=== PATIENT | male | born 1950 | race Caucasian/White ===

== ENCOUNTER 2017-10-24 18:13 | Inpatient (IN) | payer MEDICARE, OTHER ==
[~2017-10-24] VITALS: Ht 167.6 cm; Wt 83.0 kg
[2017-10-24 18:35] LABS: BASOPHILS # (AUTO) 0.1 X10'3 (0-0.2); BASOPHILS % (AUTO) 0.8 % (0-1); EOSINOPHILS # (AUTO) 0.1 X10'3 (0-0.9); EOSINOPHILS % (AUTO) 1.5 % (0-6); HEMATOCRIT 46.4 % (42.0-52.0); HEMOGLOBIN 15.6 g/dl (14.0-17.9); LYMPHOCYTES # (AUTO) 1.7 X10'3 (1.1-4.8); LYMPHOCYTES % (AUTO) 22.8 % (21-51); MEAN CORPUSCULAR HEMOGLOBIN 30.8 PG (27.0-31.0); MEAN CORPUSCULAR HGB CONC 33.5 % (33.0-36.5); MEAN CORPUSCULAR VOLUME 91.9 FL (78-98); MEAN PLATELET VOLUME 6.9 FL (7.4-10.4); MONOCYTES # (AUTO) 0.7 X10'3 (0-0.9); MONOCYTES % (AUTO) 9.2 % (2-12); NEUTROPHILS % (AUTO) 65.7 % (42-75); PLATELET COUNT 158 X10'3 (140-440); RED BLOOD COUNT 5.05 X10'6 (4.70-6.10); RED CELL DISTRIBUTION WIDTH 13.5 % (11.5-14.5); WHITE BLOOD COUNT 7.6 X10'3 (4.5-11.0)
[2017-10-24 18:55] LABS: ALANINE AMINOTRANSFERASE 38 U/L (12-78); ALBUMIN 2.6 G/DL (3.4-5.0); ALBUMIN/GLOBULIN RATIO 0.7 (1.1-1.5); ALKALINE PHOSPHATASE 75 IU/L (46-116); ANION GAP 7 (8-16); ASPARTATE AMINO TRANSFERASE 46 U/L (10-37); BILIRUBIN,TOTAL 0.3 MG/DL (0.1-1.0); BLOOD UREA NITROGEN 36 MG/DL (7-18); BUN/CREATININE RATIO 12.9 (5.4-32.0); CALCIUM 8.5 MG/DL (8.5-10.1); CHLORIDE 104 MMOL/L (99-107); CREATININE 2.78 MG/DL (0.60-1.10); GLUCOSE 183 MG/DL (70-104); POTASSIUM 4.2 MMOL/L (3.5-5.1); SODIUM 137 MMOL/L (135-145); TOTAL CARBON DIOXIDE 25.7 MMOL/L (24-32); TOTAL PROTEIN 6.6 G/DL (6.4-8.2); eGFR 23 ML/MIN
[2017-10-24 18:57] LABS: MAGNESIUM 1.8 MG/DL (1.5-2.4)
[2017-10-24] MEDS ORDERED: heparin 10,000 units/1 ML INJ IV ONE ×2 (19:15→19:20)
[2017-10-24] MEDS ORDERED: heparin 10,000 units/1 ML INJ IV PRN (19:15)
[2017-10-24] MEDS ORDERED: SITA100T11 PO (19:17)
[2017-10-24] MEDS ORDERED: OMEG1CAP13 PO (19:17)
[2017-10-24] MEDS ORDERED: LOSA50TA37 PO (19:17)
[2017-10-24] MEDS ORDERED: ASPI81TA52 PO (19:17)
[2017-10-24] MEDS ORDERED: LANTUS SQ (19:17)
[2017-10-24] MEDS ORDERED: GLYB5TAB7 PO (19:17)
[2017-10-24] MEDS ORDERED: LOVA40TA2 PO (19:17)
[2017-10-24] MEDS ORDERED: OMEP20TA23 PO (19:17)
[2017-10-24] MEDS ORDERED: SPIR25TA5 PO (19:17)
[2017-10-24] MEDS ORDERED: METO50TA17 PO (19:17)
[2017-10-24] MEDS ORDERED: dextrose ORAL solution 15 GM/59 ML bottle PO PRN ×2 (20:50)
[2017-10-24] MEDS ORDERED: mag hydrox/Alum hydrox/simeth 30ml oral suspension PO PRN (20:50)
[2017-10-24] MEDS ORDERED: glucagon, human recombinant 1mg kit SUBCUT PRN (20:50)
[2017-10-24] MEDS ORDERED: MESSAGE TO PHARMACY PO ONE (20:50)
[2017-10-24] MEDS ORDERED: morphine 4 MG/ML inj SYRINge IV PRN ×2 (20:50)
[2017-10-24] MEDS ORDERED: magnesium hydroxide 30ml (MOM) UD suspension PO PRN (20:50)
[2017-10-24] MEDS ORDERED: dextrose 50%-water 50ml dispensing syringe IV PRN ×2 (20:50)
[2017-10-24] MEDS ORDERED: acetaminophen 325mg tablet PO PRN (20:50)
[2017-10-24] MEDS ORDERED: ondansetron/PF 4mg/2ml inj IV PRN (20:50)
[2017-10-24] MEDS: insulin glargine (Lantus) pen - multi-dose SQ SCH (21:00)
[2017-10-24 21:25] LABS: HEMOGLOBIN A1C 8.8 % (4.5-6.2)
[2017-10-24 21:32] VITALS: BP 144/75
[2017-10-24 23:00] VITALS: BP 129/72
[2017-10-25 03:00] VITALS: BP 129/73
[2017-10-25 05:30] VITALS: BP 136/74
[2017-10-25] MEDS ORDERED: spironolactone 25 MG tablet PO SCH (08:00)
[2017-10-25] MEDS ORDERED: aspirin 81mg tablet.DR PO SCH (08:00)
[2017-10-25] MEDS ORDERED: atorvastatin 20mg tablet PO SCH (08:00)
[2017-10-25] MEDS: losartan 50mg tablet PO SCH (08:07)
[2017-10-25] MEDS: metoprolol tartrate 50mg tablet PO SCH (08:07)
[2017-10-25 08:21] LABS: ALBUMIN 2.4 G/DL (3.4-5.0); ANION GAP 11 (8-16); BLOOD UREA NITROGEN 36 MG/DL (7-18); BUN/CREATININE RATIO 13.6 (5.4-32.0); CALCIUM 8.6 MG/DL (8.5-10.1); CHLORIDE 105 MMOL/L (99-107); CREATININE 2.64 MG/DL (0.60-1.10); GLUCOSE 161 MG/DL (70-104); POTASSIUM 3.9 MMOL/L (3.5-5.1); SODIUM 138 MMOL/L (135-145); TOTAL CARBON DIOXIDE 22.2 MMOL/L (24-32); eGFR 24 ML/MIN
[2017-10-25 08:23] LABS: BASOPHILS % (AUTO) 0.5 % (0-1); EOSINOPHILS # (AUTO) 0.1 X10'3 (0-0.9); EOSINOPHILS % (AUTO) 2.1 % (0-6); HEMATOCRIT 44.7 % (42.0-52.0); HEMOGLOBIN 15.1 g/dl (14.0-17.9); LYMPHOCYTES # (AUTO) 1.3 X10'3 (1.1-4.8); LYMPHOCYTES % (AUTO) 19.1 % (21-51); MEAN CORPUSCULAR HEMOGLOBIN 30.8 PG (27.0-31.0); MEAN CORPUSCULAR HGB CONC 33.8 % (33.0-36.5); MEAN CORPUSCULAR VOLUME 91.3 FL (78-98); MEAN PLATELET VOLUME 7.7 FL (7.4-10.4); MONOCYTES # (AUTO) 0.6 X10'3 (0-0.9); MONOCYTES % (AUTO) 8.2 % (2-12); NEUTROPHILS # (AUTO) 4.8 X10'3 (1.8-7.7); NEUTROPHILS % (AUTO) 70.1 % (42-75); PLATELET COUNT 140 X10'3 (140-440); RED CELL DISTRIBUTION WIDTH 13.6 % (11.5-14.5); WHITE BLOOD COUNT 6.8 X10'3 (4.5-11.0)
[2017-10-25 10:53] LABS: CHOLESTEROL 232 MG/DL (0-200); HDL CHOLESTEROL 46 MG/DL (35-60); LDL CHOLESTEROL 142 MG/DL (50-100); TRIGLYCERIDES 265 MG/DL (20-135)
[2017-10-25 11:00] VITALS: BP 130/76
[2017-10-25] MEDS: sodium bicarbonate (8.4%) inj. 100 MEQ in dextrose 5%-water 1,000 ML IV SCH ×2 (14:03→23:00)
[2017-10-25 15:00] VITALS: BP 133/84
[2017-10-25] MEDS ORDERED: nitroGLYCERIN 0.4mg SUBLingual tab SL PRN (16:45)
[2017-10-25] MEDS: insulin Lispro (HumaLOG) vial - multi-dose SQ SCH (18:42)
[2017-10-25 19:00] VITALS: BP 145/70
[2017-10-25] MEDS: insulin glargine (Lantus) pen - multi-dose SQ SCH (22:08)
[2017-10-25] MEDS: acetaminophen 325mg tablet PO PRN (22:09)
[2017-10-25 23:00] VITALS: BP 110/63
[2017-10-26] MEDS: sodium bicarbonate (8.4%) inj. 100 MEQ in dextrose 5%-water 1,000 ML IV SCH ×2 (01:46→14:13)
[2017-10-26 02:24] LABS: ALBUMIN 2.2 G/DL (3.4-5.0); ANION GAP 8 (8-16); BLOOD UREA NITROGEN 38 MG/DL (7-18); BUN/CREATININE RATIO 15.4 (5.4-32.0); CALCIUM 8.1 MG/DL (8.5-10.1); CHLORIDE 102 MMOL/L (99-107); CREATININE 2.47 MG/DL (0.60-1.10); GLUCOSE 110 MG/DL (70-104); POTASSIUM 3.3 MMOL/L (3.5-5.1); SODIUM 138 MMOL/L (135-145); TOTAL CARBON DIOXIDE 28.1 MMOL/L (24-32); eGFR 26 ML/MIN
[2017-10-26 02:26] LABS: BASOPHILS % (AUTO) 0.4 % (0-1); EOSINOPHILS # (AUTO) 0.1 X10'3 (0-0.9); EOSINOPHILS % (AUTO) 1.7 % (0-6); HEMATOCRIT 43.2 % (42.0-52.0); HEMOGLOBIN 14.6 g/dl (14.0-17.9); LYMPHOCYTES # (AUTO) 1.6 X10'3 (1.1-4.8); LYMPHOCYTES % (AUTO) 20.8 % (21-51); MEAN CORPUSCULAR HEMOGLOBIN 31.1 PG (27.0-31.0); MEAN CORPUSCULAR HGB CONC 33.9 % (33.0-36.5); MEAN CORPUSCULAR VOLUME 91.7 FL (78-98); MEAN PLATELET VOLUME 7.6 FL (7.4-10.4); MONOCYTES # (AUTO) 0.6 X10'3 (0-0.9); MONOCYTES % (AUTO) 8.3 % (2-12); NEUTROPHILS # (AUTO) 5.3 X10'3 (1.8-7.7); NEUTROPHILS % (AUTO) 68.8 % (42-75); PLATELET COUNT 147 X10'3 (140-440); RED BLOOD COUNT 4.72 X10'6 (4.70-6.10); RED CELL DISTRIBUTION WIDTH 13.4 % (11.5-14.5); WHITE BLOOD COUNT 7.7 X10'3 (4.5-11.0)
[2017-10-26 02:27] LABS: TROPONIN I 5.71 NG/ML (0.0-0.05)
[2017-10-26 03:00] VITALS: BP 123/69
[2017-10-26 06:00] VITALS: BP 113/62
[2017-10-26] MEDS: metoprolol tartrate 50mg tablet PO SCH (07:41)
[2017-10-26] MEDS: aspirin 81mg tablet.DR PO SCH (07:42)
[2017-10-26] MEDS: atorvastatin 20mg tablet PO SCH (07:42)
[2017-10-26] MEDS: losartan 50mg tablet PO SCH (07:42)
[2017-10-26] MEDS: insulin Lispro (HumaLOG) vial - multi-dose SQ SCH ×3 (08:55→19:37)
[2017-10-26 11:00] VITALS: BP 104/58
[2017-10-26 15:00] VITALS: BP 114/69
[2017-10-26 18:00] VITALS: BP 128/86
[2017-10-26] MEDS ORDERED: potassium Cl 40MEQ/NS 500ml 500 ML IV PRN ×2 (21:25)
[2017-10-26] MEDS ORDERED: potassium Cl 20 mEq SR tablet PO PRN ×2 (21:25)
[2017-10-26] MEDS: insulin glargine (Lantus) pen - multi-dose SQ SCH (21:36)
[2017-10-26 22:00] VITALS: BP 142/80
[2017-10-26] MEDS: K and/or MAG REPLACEMENT MC SCH (22:00)
[2017-10-27] MEDS: sodium bicarbonate (8.4%) inj. 100 MEQ in dextrose 5%-water 1,000 ML IV SCH (01:48)
[2017-10-27 02:00] VITALS: BP 148/80
[2017-10-27] MEDS ORDERED: lidocaine 1%/epinephrine 1:100,000 injection 50ml vial ONE (05:46)
[2017-10-27] MEDS ORDERED: iohexol 350MG/ML 100ml bottle IV ONE (05:46)
[2017-10-27] MEDS ORDERED: fentaNYL/PF 50MCG/1 ML 2ML syringe ONE (05:46)
[2017-10-27] MEDS ORDERED: midazolam 2 mg/2 ml injection ONE (05:46)
[2017-10-27 06:08] LABS: BASOPHILS % (AUTO) 0.4 % (0-1); EOSINOPHILS # (AUTO) 0.2 X10'3 (0-0.9); HEMATOCRIT 44.6 % (42.0-52.0); HEMOGLOBIN 15.1 g/dl (14.0-17.9); LYMPHOCYTES # (AUTO) 1.5 X10'3 (1.1-4.8); LYMPHOCYTES % (AUTO) 22.8 % (21-51); MEAN CORPUSCULAR HEMOGLOBIN 31.1 PG (27.0-31.0); MEAN CORPUSCULAR VOLUME 91.4 FL (78-98); MEAN PLATELET VOLUME 7.6 FL (7.4-10.4); MONOCYTES # (AUTO) 0.7 X10'3 (0-0.9); MONOCYTES % (AUTO) 9.8 % (2-12); NEUTROPHILS # (AUTO) 4.3 X10'3 (1.8-7.7); PLATELET COUNT 156 X10'3 (140-440); RED BLOOD COUNT 4.88 X10'6 (4.70-6.10); RED CELL DISTRIBUTION WIDTH 13.4 % (11.5-14.5); WHITE BLOOD COUNT 6.7 X10'3 (4.5-11.0)
[2017-10-27 06:29] LABS: ALBUMIN 2.3 G/DL (3.4-5.0); ANION GAP 2 (8-16); BLOOD UREA NITROGEN 32 MG/DL (7-18); CALCIUM 8.5 MG/DL (8.5-10.1); CHLORIDE 101 MMOL/L (99-107); CREATININE 2.13 MG/DL (0.60-1.10); GLUCOSE 190 MG/DL (70-104); POTASSIUM 3.6 MMOL/L (3.5-5.1); SODIUM 135 MMOL/L (135-145); TOTAL CARBON DIOXIDE 31.9 MMOL/L (24-32); eGFR 31 ML/MIN
[2017-10-27] MEDS: losartan 50mg tablet PO SCH (07:37)
[2017-10-27] MEDS: acetaminophen 325mg tablet PO PRN (07:39)
[2017-10-27] MEDS: aspirin 81mg tablet.DR PO SCH (07:39)
[2017-10-27] MEDS: atorvastatin 20mg tablet PO SCH (07:39)
[2017-10-27] MEDS ORDERED: metoprolol tartrate 25mg tablet PO SCH (08:00)
[2017-10-27] MEDS: K and/or MAG REPLACEMENT MC SCH (08:00)
[2017-10-27] MEDS ORDERED: ondansetron/PF 4mg/2ml inj IV PRN (08:05)
[2017-10-27] MEDS ORDERED: proCHLORperazine 10 MG/2 ml inj IV PRN (08:05)
[2017-10-27] MEDS ORDERED: OXAZEpam 15mg capsule PO PRN (08:05)
[2017-10-27] MEDS: insulin Lispro (HumaLOG) vial - multi-dose SQ SCH (08:54)
[2017-10-27 11:00] VITALS: BP 119/76
[2017-10-27] MEDS ORDERED: ATOR80TA PO (12:24)
== END 2017-10-27 13:20 | disposition home or self-care (01) | DRG 281 ==
LOC: ER 18:14 → PCU 3S 20:48
PROVIDERS: ADMIT Internal Medicine; ATTEND Family Medicine
PROC: B2111ZZ Fluoroscopy of Multiple Coronary Arteries using Low Osmolar Contrast (ICD-10-PCS; principal; 2017-10-27)
DX: I21.4 Non-ST elevation (NSTEMI) myocardial infarction (principal); E44.1 Mild protein-calorie malnutrition; N18.3 Chronic kidney disease, stage 3 (moderate); E11.22 Type 2 diabetes mellitus with diabetic chronic kidney disease; E78.5 Hyperlipidemia, unspecified; M19.90 Unspecified osteoarthritis, unspecified site; I12.9 Hypertensive chronic kidney disease with stage 1 through stage 4 chronic kidney disease, or unspecified chronic kidney disease; I25.10 Atherosclerotic heart disease of native coronary artery without angina pectoris; Z66 Do not resuscitate; Z72.89 Other problems related to lifestyle; Z95.5 Presence of coronary angioplasty implant and graft; Z79.899 Other long term (current) drug therapy; Z79.4 Long term (current) use of insulin; Z79.82 Long term (current) use of aspirin; Z86.718 Personal history of other venous thrombosis and embolism; Z82.0 Family history of epilepsy and other diseases of the nervous system; Z82.49 Family history of ischemic heart disease and other diseases of the circulatory system; Z83.3 Family history of diabetes mellitus; Z68.29 Body mass index [BMI] 29.0-29.9, adult
CPT/HCPCS: 36415; 71045; 80048; 80053; 80061; 82948; 83036; 83735; 83880; 84484; 85025; 85730; 87070; 93005; 93308; 93458; 96374; 99152; 99285; A4620; A6257; C1769; J1644; J1815; J2250; J3010; J3490; Q9967

== ENCOUNTER 2019-01-17 06:06 | Day surgery (SDC) | payer MEDICARE, OTHER ==
[2019-01-16 14:14] LABS: BASOPHILS # (AUTO) 0.1 X10'3 (0-0.2); BASOPHILS % (AUTO) 0.8 % (0-1); EOSINOPHILS # (AUTO) 0.2 X10'3 (0-0.9); EOSINOPHILS % (AUTO) 3.5 % (0-6); HEMATOCRIT 45.3 % (42.0-52.0); HEMOGLOBIN 15.3 g/dl (14.0-17.9); LYMPHOCYTES # (AUTO) 1.7 X10'3 (1.1-4.8); LYMPHOCYTES % (AUTO) 26.4 % (21-51); MEAN CORPUSCULAR HEMOGLOBIN 31.3 PG (27.0-31.0); MEAN CORPUSCULAR HGB CONC 33.7 g/dL (33.0-36.5); MEAN PLATELET VOLUME 7.3 FL (7.4-10.4); MONOCYTES # (AUTO) 0.5 X10'3 (0-0.9); NEUTROPHILS # (AUTO) 3.9 X10'3 (1.8-7.7); NEUTROPHILS % (AUTO) 61.3 % (42-75); PLATELET COUNT 177 X10'3 (140-440); RED BLOOD COUNT 4.87 X10'6 (4.70-6.10); RED CELL DISTRIBUTION WIDTH 12.8 % (11.5-14.5); WHITE BLOOD COUNT 6.3 X10'3 (4.5-11.0)
[2019-01-16 14:27] LABS: ALBUMIN 2.7 G/DL (3.4-5.0); ANION GAP 4 (8-16); BLOOD UREA NITROGEN 32 MG/DL (7-18); BUN/CREATININE RATIO 12.2 (5.4-32.0); CALCIUM 8.3 MG/DL (8.5-10.1); CHLORIDE 104 MMOL/L (99-107); CREATININE 2.63 MG/DL (0.60-1.10); GLUCOSE 237 MG/DL (70-104); POTASSIUM 4.7 MMOL/L (3.5-5.1); SODIUM 137 MMOL/L (135-145); TOTAL CARBON DIOXIDE 28.9 MMOL/L (24-32); eGFR 24 ML/MIN
[2019-01-16 14:31] LABS: PARTIAL THROMBOPLASTIN TIME 27 SECONDS (22-32)
[~2019-01-17] VITALS: Ht 167.6 cm; Wt 80.9 kg
[2019-01-17] VITALS (16 sets, daily range): BP systolic 129–156; BP diastolic 73–82
[~2019-01-17 06:06] MED LIST: ASPI81TA52 PO; GLYB5TAB7 PO; LANTUS SQ; LOSA50TA64 PO; METO50TA17 PO; OMEG1CAP13 PO; OMEP20TA23 PO; SITA100T11 PO; SPIR25TA5 PO
[2019-01-17] MEDS ORDERED: diphenhydrAMINE 25mg capsule PO PRN (06:25)
[2019-01-17] MEDS ORDERED: LORazepam 0.5 MG tablet PO PRN (06:25)
[2019-01-17] MEDS ORDERED: LOVA20TA2 PO (06:40)
[2019-01-17] MEDS ORDERED: CHOL100046 PO (06:40)
[2019-01-17] MEDS ORDERED: SITA25TA3 PO (06:40)
[2019-01-17] MEDS ORDERED: NITR0.4T51 SL (06:40)
[2019-01-17] MEDS ORDERED: PYRI50TA13 PO (06:40)
[2019-01-17] MEDS ORDERED: LANTUS SQ (06:40)
[2019-01-17] MEDS ORDERED: CLOP75TA35 PO (06:40)
[2019-01-17] MEDS ORDERED: acetylcysteine 200 MG/ml 4ml vial PO PRN (07:00)
[2019-01-17] MEDS ORDERED: verapamil 2.5 mg/ml inj IV ONE (07:08)
[2019-01-17] MEDS ORDERED: fentaNYL/PF 50MCG/1 ML 2ML syringe ONE (07:08)
[2019-01-17] MEDS ORDERED: nitroGLYCERIN-Tridil 50MG/D5W 250 ML IV ONE (07:08)
[2019-01-17] MEDS ORDERED: iohexol 350 MG/ML 50ML vial IV ONE (07:09)
[2019-01-17] MEDS ORDERED: midazolam 2 mg/2 ml injection ONE (07:09)
[2019-01-17] MEDS ORDERED: heparin 1,000unit/ml 10ml vial 10 ML ONE (07:09)
[2019-01-17] MEDS ORDERED: iohexol 350MG/ML 100ml bottle IV ONE ×2 (07:09→08:40)
[2019-01-17] MEDS ORDERED: LIDOcaine 1% 30ml preserv. free vial ONE (07:09)
[2019-01-17] MEDS ORDERED: LIDOcaine/PRILOcaine 5gm cream TP ONE (07:35)
[2019-01-17] MEDS: sodium bicarbonate (8.4%) inj. 75 ML in dextrose 5% water 500ml 500 ML IV SCH ×2 (07:44→10:27)
[2019-01-17] MEDS ORDERED: normal saline 1000ml 1,000 ML IV SCH (11:25)
[2019-01-17] MEDS ORDERED: HYDROcodone/acetaminophen 5mg/325mg tablet PO PRN (11:25)
[2019-01-17] MEDS ORDERED: OXAZEpam 15mg capsule PO PRN (11:25)
[2019-01-17] MEDS ORDERED: HYDROcodone/acetaminophen 10/325mg tab PO PRN (11:25)
[2019-01-17] MEDS ORDERED: sodium bicarbonate (8.4%) inj. 100 MEQ in dextrose 5%-water 1,000 ML IV ONE (13:40)
[2019-01-17] MEDS ORDERED: cyclobenzaprine 10mg tablet PO ONE (15:05)
--- NOTE | 2019-01-17 15:22 | NUR ---
released pressure on femstop per md orders, pt resting comfortably in bed, no s/s of bleeding at groin site.
[2019-01-17 18:51] LABS: ISTAT HGB ART 13.9 g/dl (14.0-18.0); ISTAT Hct ART 41 %PCV (42-52); ISTAT O2 SATURATION ARTERIAL 99 % (95-98); ISTAT SOURCE ART
[2019-01-17 18:51] LABS: ISTAT Hct MIX 42 %PCV (42-52); ISTAT O2 SATURATION MIX VENOUS 73 % (60-80); ISTAT SOURCE MIX
== END 2019-01-17 16:35 | disposition home or self-care (01) ==
LOC: SSTAY O 06:06
PROVIDERS: ATTEND Internal Medicine Cardiovascular Disease
DX: R94.39 Abnormal result of other cardiovascular function study (principal); I25.118 Atherosclerotic heart disease of native coronary artery with other forms of angina pectoris; E78.5 Hyperlipidemia, unspecified; K21.9 Gastro-esophageal reflux disease without esophagitis; E11.22 Type 2 diabetes mellitus with diabetic chronic kidney disease; I12.9 Hypertensive chronic kidney disease with stage 1 through stage 4 chronic kidney disease, or unspecified chronic kidney disease; N18.9 Chronic kidney disease, unspecified; E66.3 Overweight; Z68.28 Body mass index [BMI] 28.0-28.9, adult; Z79.4 Long term (current) use of insulin; Z79.899 Other long term (current) drug therapy; Z79.01 Long term (current) use of anticoagulants; Z98.890 Other specified postprocedural states; Z95.5 Presence of coronary angioplasty implant and graft; Z82.49 Family history of ischemic heart disease and other diseases of the circulatory system; Z83.3 Family history of diabetes mellitus
CPT/HCPCS: 36415; 80048; 82803; 82948; 85014; 85025; 85610; 85730; 93005; 93460; 99152; 99153; C1769; C1894; J1644; J2001; J2250; J3010; J7030; Q0163; Q9967; A4620; A6258; J3490

== ENCOUNTER 2019-01-31 09:08 | Inpatient (IN) | payer MEDICARE, OTHER ==
[2019-01-29 15:33] LABS: HEMOGLOBIN A1C 7.6 % (4.5-6.2)
[2019-01-29 15:36] LABS: ALBUMIN 2.8 G/DL (3.4-5.0); ALBUMIN/GLOBULIN RATIO 0.7 (1.1-1.5); ALKALINE PHOSPHATASE 73 IU/L (46-116); BLOOD UREA NITROGEN 30 MG/DL (7-18); BUN/CREATININE RATIO 11.2 (5.4-32.0); CALCIUM 8.8 MG/DL (8.5-10.1); CHLORIDE 103 MMOL/L (99-107); CREATININE 2.67 MG/DL (0.60-1.10); PRE OP ALT 25 U/L (30-65); PRE OP ANION GAP 7 (8-16); PRE OP BILIRUB, TOTAL 0.3 MG/DL (0.0-1.0); PRE OP SODIUM 138 MMOL/L (135-145); TOTAL CARBON DIOXIDE 28.5 MMOL/L (24-32); TOTAL PROTEIN 6.6 G/DL (6.4-8.2); eGFR 24 ML/MIN
[2019-01-29 15:37] LABS: PRE OP AST 19 U/L (10-37); PRE OP POTASSIUM 4.3 MMOL/L (3.4-5.1)
[2019-01-29 15:39] LABS: PRE OP GLUCOSE 233 MG/DL (70-104)
[2019-01-29 15:40] LABS: BASOPHILS # (AUTO) 0.1 X10'3 (0-0.2); BASOPHILS % (AUTO) 0.8 % (0-1); EOSINOPHILS # (AUTO) 0.3 X10'3 (0-0.9); EOSINOPHILS % (AUTO) 3.3 % (0-6); LYMPHOCYTES # (AUTO) 1.9 X10'3 (1.1-4.8); LYMPHOCYTES % (AUTO) 24.1 % (21-51); MEAN CORPUSCULAR HEMOGLOBIN 31.4 PG (27.0-31.0); MEAN CORPUSCULAR HGB CONC 33.9 g/dL (33.0-36.5); MEAN CORPUSCULAR VOLUME 92.8 FL (78-98); MEAN PLATELET VOLUME 7.1 FL (7.4-10.4); MONOCYTES # (AUTO) 0.5 X10'3 (0-0.9); MONOCYTES % (AUTO) 6.5 % (2-12); NEUTROPHILS # (AUTO) 5.1 X10'3 (1.8-7.7); NEUTROPHILS % (AUTO) 65.3 % (42-75); PRE OP HEMATOCRIT 45.4 % (42.0-52.0); PRE OP HEMOGLOBIN 15.4 g/dL (14.0-17.9); PRE OP PLATELET COUNT 198 X10'3 (140-440); RED BLOOD COUNT 4.89 X10'6 (4.70-6.10); RED CELL DISTRIBUTION WIDTH 12.9 % (11.5-14.5)
[2019-01-29 15:41] LABS: PRE OP PARTIAL THROMB. TIME 27 SECONDS (22-32); PRE OP PROTIME 9.7 SECONDS (9.0-12.0)
[2019-01-29 15:47] LABS: PRE OP INR < 0.9 INR
[2019-01-30 09:21] LABS: ABG BASE EXCESS -2.8 mmol/L (-2.0-3.0); ABG HCO3 20.3 mmol/L (22.0-26.0); ABG OXYGEN SATURATION 97.5 % (95-98); ABG PCO2 (T) 31.2 mmHg (35.0-45.0); ABG PH (T) 7.431 (7.350-7.450); ABG PO2 (T) 93.7 mmHg (83-108); ALLEN'S TEST Positive; FCOHb 0.5 % (0.5-1.5); FMetHb 0.1 % (0.3-1.12); FO2Hb 96.9 % (94-100)
[~2019-01-31] VITALS: Ht 167.6 cm; Wt 79.9 kg
[~2019-01-31 09:08] MED LIST changes: -ASPI81TA52 PO; +CLOP75TA35 PO; +CYAN100019 PO; +DOCUMENT DATE & TIME OF BETA-BLOCKER PO ONE; +INSU100I31 SQ; +ISOS60TA4 PO; -LANTUS SQ; +LORazepam 1 MG tablet PO ONE; +LOVA40TA2 PO; +NITR0.4T51 SL; +ROPIVAcaine 0.5% (5mg/ml) 30ml vial ONE; -SITA100T11 PO; +SITA25TA3 PO; +cefazolin/dext.iso 2gm/50ml 50 ML IV ONE; +famotidine 20mg tablet PO ONE; +gabapentin 300mg capsule PO ONE; +insulin regular, human 100 UNIT in normal saline 100ml IV soln 99 ML IV SCH; +mupirocin 2% nasal ointment 1gm UD NS ONE; +ringers solution, lacted 1,000 ML IV SCH; +vancomycin inj 1,500 MG in normal saline 300ml IV soln IV ONE
[2019-01-31 09:20] VITALS: BP_SYST 143; BP_SYST 147; BP_DIAS 78; BP_DIAS 81
[2019-01-31] MEDS ORDERED: LORazepam 2 mg/ml vial IV ONE (10:10)
[2019-01-31] MEDS ORDERED: LORAZEPAM 2 MG/1 ML IV ONE (10:10)
[2019-01-31 10:25] LABS: CLARITY,URINE CLEAR (Clear); COLOR,URINE YELLOW (Yellow); GLUCOSE, URINE 250 mg/dl (Neg); KETONES,URINE NEGATIVE (Neg); LEUKOCYTE ESTERASE ,URINE NEGATIVE (Neg); NITRITES, URINE NEGATIVE (Neg); OCCULT BLOOD,URINE SMALL (Neg); PROTEIN,URINE >=300 mg/dl (Neg); UROBILINOGEN,URINE 0.2 E.U/dL (0.2-1.0)
[2019-01-31 10:29] LABS: UA COLLECTION TYPE CLN CATCH MIDSTREAM
[2019-01-31 10:31] LABS: BACTERIA,URINE NONE SEEN /HPF (Neg); RBC,URINE 0-2 /HPF (0-2); SQUAMOUS EPITHELIAL CELL,UR FEW /LPF (FEW); WBC,URINE 0-4 /HPF (0-4)
[2019-01-31 10:32] LABS: HYALINE CASTS 0-3 /LPF (NEGATIVE)
[2019-01-31] MEDS ORDERED: insulin regular, human 10 units/0.1 ml syringe SQ ONE (10:55)
--- NOTE | 2019-01-31 13:00 | NUR ---
DR. WATSON SPOKE WITH PT ABOUT HIS PREVIOUS CASE RUNNING LONG SO PTS CASE WILL NEED TO BE POSTPONED UNTIL TOMORROW. AFTER OPTIONS GIVEN TO PT, PT DECIDED TO GO HOME AND RETURN TOMORROW AT 530 AM FOR SURGERY. NEW PRE-OP INSTR EXPLAINED TO PT AND FAMILY. QUESTIONS SOLICITED AND ANSWERED. PT AMB TO POV FOR DC HOME
[2019-02-06] MEDS ORDERED: DOCU100C40 PO (09:06)
[2019-02-06] MEDS ORDERED: HYDR-4353 PO ×4 (09:06→10:15)
[2019-02-06] MEDS ORDERED: ASPI-1071 PO (09:06)
== END 2019-01-31 13:00 | disposition home or self-care (01) | DRG 303 ==
LOC: PAS IN 09:08 → EDSTATUS 13:00
PROVIDERS: ADMIT Thoracic Surgery (Cardiothoracic Vascular Surgery); ATTEND Thoracic Surgery (Cardiothoracic Vascular Surgery)
DX: I25.119 Atherosclerotic heart disease of native coronary artery with unspecified angina pectoris (principal); N18.4 Chronic kidney disease, stage 4 (severe); E11.22 Type 2 diabetes mellitus with diabetic chronic kidney disease; M19.90 Unspecified osteoarthritis, unspecified site; I12.9 Hypertensive chronic kidney disease with stage 1 through stage 4 chronic kidney disease, or unspecified chronic kidney disease; E78.5 Hyperlipidemia, unspecified; Z82.0 Family history of epilepsy and other diseases of the nervous system; Z82.49 Family history of ischemic heart disease and other diseases of the circulatory system; Z83.3 Family history of diabetes mellitus; Z95.5 Presence of coronary angioplasty implant and graft
CPT/HCPCS: 36415; 36600; 71046; 80053; 81001; 82803; 82948; 83036; 85018; 85025; 85610; 85730; 87081; 93005; 93880; 93970; 94010; J1815; J2060; J2795; J3370; J7120

== ENCOUNTER 2023-01-12 11:36 | Day surgery (SDC) | payer MEDICARE, OTHER ==
[~2023-01-12] VITALS: Ht 167.6 cm; Wt 82.0 kg
[2023-01-12] VITALS (16 sets, daily range): BP systolic 82–136; BP diastolic 38–75; PULSE 50–59; RESP 7–16; TEMP 97.6; O2SAT 92–99
[~2023-01-12 11:36] MED LIST changes: +AMLO10TA13 PO; +ASPI-612 PO; -CLOP75TA35 PO; -CYAN100019 PO; +FURO40TA4 PO; -GLYB5TAB7 PO; +HYDR-4069 PO; +INSU100C4 SQ; -INSU100I31 SQ; +INSU200I4 SQ; -ISOS60TA4 PO; -LORazepam 1 MG tablet PO ONE; -LOSA50TA64 PO; -LOVA40TA2 PO; -NITR0.4T51 SL; -OMEG1CAP13 PO; -OMEP20TA23 PO; -ROPIVAcaine 0.5% (5mg/ml) 30ml vial ONE; +ROSU40TA22 PO; -SITA25TA3 PO; +SODI650T29 PO; -SPIR25TA5 PO; +UBID100C16 PO; +ZOLP5TAB8 PO; +cefazolin 2gm/D5W 100mL 100 ML IV ONE; -cefazolin/dext.iso 2gm/50ml 50 ML IV ONE; -gabapentin 300mg capsule PO ONE; -insulin regular, human 100 UNIT in normal saline 100ml IV soln 99 ML IV SCH; -mupirocin 2% nasal ointment 1gm UD NS ONE; +normal saline 1000ml 1,000 ML IV SCH; -vancomycin inj 1,500 MG in normal saline 300ml IV soln IV ONE
[2023-01-12] MEDS ORDERED: morphine 2 MG/ML inj. syringe IV PRN (13:00)
[2023-01-12] MEDS ORDERED: enalaprilat dihydrate 2.5mg/2ml vial IV PRN (13:00)
[2023-01-12] MEDS ORDERED: ondansetron/PF 4mg/2ml inj IV PRN (13:00)
[2023-01-12] MEDS ORDERED: morphine 4 MG/ML inj SYRINge IV PRN (13:00)
[2023-01-12] MEDS ORDERED: fentaNYL/PF 50MCG/1 ML 2ML syringe IV PRN ×2 (13:00)
[2023-01-12] MEDS ORDERED: labetalol 20mg/4ml (5mg/ml) syringe IV PRN (13:00)
[2023-01-12] MEDS ORDERED: ringers solution, lacted 1,000 ML IV SCH (13:00)
[2023-01-12 13:06] LABS: BASOPHILS # (AUTO) 0.1 X10'3 (0-0.2); BASOPHILS % (AUTO) 1.3 % (0-1); EOSINOPHILS # (AUTO) 0.5 X10'3 (0-0.9); EOSINOPHILS % (AUTO) 5.6 % (0-6); HEMATOCRIT 37.6 % (42.0-52.0); HEMOGLOBIN 12.5 g/dl (14.0-17.9); LYMPHOCYTES # (AUTO) 1.7 X10'3 (1.1-4.8); LYMPHOCYTES % (AUTO) 20.5 % (21-51); MEAN CORPUSCULAR HEMOGLOBIN 31.7 PG (27.0-31.0); MEAN CORPUSCULAR HGB CONC 33.3 g/dL (33.0-36.5); MEAN CORPUSCULAR VOLUME 95.3 FL (78-98); MEAN PLATELET VOLUME 7.3 FL (7.4-10.4); MONOCYTES % (AUTO) 12.5 % (2-12); NEUTROPHILS # (AUTO) 4.9 X10'3 (1.8-7.7); NEUTROPHILS % (AUTO) 60.1 % (42-75); PLATELET COUNT 168 X10'3 (140-440); RED BLOOD COUNT 3.95 X10'6 (4.70-6.10); RED CELL DISTRIBUTION WIDTH 12.5 % (11.5-14.5); WHITE BLOOD COUNT 8.2 X10'3 (4.5-11.0)
[2023-01-12 14:09] LABS: ALANINE AMINOTRANSFERASE 20 U/L (12-78); ALBUMIN 3.3 G/DL (3.4-5.0); ALBUMIN/GLOBULIN RATIO 0.9 (1.1-1.5); ALKALINE PHOSPHATASE 72 IU/L (46-116); ANION GAP 12 (8-16); ASPARTATE AMINO TRANSFERASE 20 U/L (10-37); BILIRUBIN,TOTAL 0.4 MG/DL (0.1-1.0); BLOOD UREA NITROGEN 59 MG/DL (7-18); BUN/CREATININE RATIO 4.9 (10.0-20.0); CALCIUM 8.8 MG/DL (8.5-10.1); CHLORIDE 98 MMOL/L (99-107); CREATININE 11.93 MG/DL (0.60-1.10); GLUCOSE 138 MG/DL (70-104); POTASSIUM 4.4 MMOL/L (3.5-5.1); SODIUM 136 MMOL/L (135-145); TOTAL CARBON DIOXIDE 25.9 MMOL/L (24-32); TOTAL PROTEIN 7.1 G/DL (6.4-8.2); eCRCL 5 ML/MIN; eGFR 4 ML/MIN
[2023-01-12] MEDS ORDERED: propofol inj 20 ML IV ONE ×2 (14:24→14:25)
[2023-01-12] MEDS ORDERED: LIDOcaine 2% (20mg/ml) 5ml vial ONE (14:24)
[2023-01-12] MEDS ORDERED: rocuronium 10mg/ml inj IV ONE (14:25)
[2023-01-12 14:42] LABS: BILIRUBIN,URINE NEGATIVE (Neg); CLARITY,URINE CLEAR (Clear); COLOR,URINE YELLOW (Yellow); GLUCOSE, URINE 250 mg/dl (Neg); KETONES,URINE NEGATIVE (Neg); LEUKOCYTE ESTERASE ,URINE NEGATIVE (Neg); NITRITES, URINE NEGATIVE (Neg); OCCULT BLOOD,URINE TRACE-INTACT (Neg); PH,URINE 7.5 (4.8-8.0); PROTEIN,URINE >=300 mg/dl (Neg); UROBILINOGEN,URINE 0.2 E.U/dL (0.2-1.0)
[2023-01-12 14:43] LABS: UA COLLECTION TYPE NON-SPECIFIED
[2023-01-12 14:52] LABS: BACTERIA,URINE FEW /HPF (Neg); RBC,URINE 0-2 /HPF (0-2); SQUAMOUS EPITHELIAL CELL,UR FEW /LPF (FEW); WBC,URINE 0-4 /HPF (0-4)
[2023-01-12] MEDS ORDERED: heparin sodium, porcine/PF 100unit/ml 5ML syringe ONE (14:52)
[2023-01-12] MEDS ORDERED: BUPIVAcaine/PF 2.5 mg/ml (0.25%) 30ml vial ONE (14:52)
[2023-01-12] MEDS ORDERED: mupirocin 2% ointment 22GM ONE (14:53)
[2023-01-12] MEDS ORDERED: glycopyrrolate 0.2mg/ml inj ONE (15:01)
[2023-01-12] MEDS ORDERED: neostigmine methylsulfate 1 MG/ML 10ml vial ONE (15:01)
[2023-01-12] MEDS ORDERED: sevoflurane 250ml liquid IH ONE (15:01)
[2023-01-12] MEDS ORDERED: sugammadex 200mg/2ml injection IV ONE (15:24)
[2023-01-12] MEDS ORDERED: midazolam 1 mg/ML 2ml injection ONE (15:25)
[2023-01-12] MEDS ORDERED: fentaNYL/PF 50MCG/1 ML 2ML syringe ONE (15:25)
[2023-01-12] MEDS ORDERED: ondansetron/PF 4mg/2ml inj ONE (15:29)
--- NOTE | 2023-01-12 16:04 | NUR ---
Received from OR via [facility], accompanied by Anesthesiologist and report given by PERFECTO Anesthesiologist. PATIENT WAKING UP, NO S/S OF PAIN, V/S WNL, PIV 20G LEFT FOREARM, ABDOMEN DRESSING C/D/I. Addendum: 01/12/23 at 1636 by Pepito Bailey RN Amended: Links added.
[2023-01-12] MEDS ORDERED: BUPIVAcaine/PF 2.5 mg/ml (0.25%) 30ml vial IJ ONE (16:19)
[2023-01-12] MEDS ORDERED: heparin sodium, porcine/PF 100unit/ml 5ML syringe IV ONE (16:21)
[2023-01-12] MEDS ORDERED: HYDROcodone/acetaminophen 10/325mg tab PO ONE (16:45)
[2023-01-12] MEDS ORDERED: albumin (Human) 5% 250ml 250 ML IV ONE (16:50)
[2023-01-12] MEDS ORDERED: albumin (Human) 5% 250ml 250 ML IV PRN (17:15)
--- NOTE | 2023-01-12 17:39 | NUR ---
ALL DISCHARGE CRITERIA HAS BEEN MET. VSS, PAIN AT A TOLERABLE LEVEL, ABLE TO SAFELY AMBULATE AND TRANSFER SELF. IV TAKEN OUT WITHOUT ANY COMPLICATIONS. ALL DISCHARGE INSTRUCTIONS COVERED WITH PATIENT AND ALL QUESTIONS ANSWERED. PATIENT TAKEN OUT VIA WHEELCHAIR WITH ALL BELONGINGS TO PERSONAL VEHICLE WHERE FAMILY DROVE PATIENT HOME. Addendum: 01/12/23 at 1750 by Pepito Bailey RN Amended: Links added.
== END 2023-01-12 17:39 | disposition home or self-care (01) ==
LOC: PAS 11:36
PROVIDERS: ATTEND Surgery
DX: T85.691A Other mechanical complication of intraperitoneal dialysis catheter, initial encounter (principal); E11.22 Type 2 diabetes mellitus with diabetic chronic kidney disease; I12.0 Hypertensive chronic kidney disease with stage 5 chronic kidney disease or end stage renal disease; N18.6 End stage renal disease; I25.2 Old myocardial infarction; K21.9 Gastro-esophageal reflux disease without esophagitis; E66.9 Obesity, unspecified; Z68.29 Body mass index [BMI] 29.0-29.9, adult; Z95.1 Presence of aortocoronary bypass graft; Z95.5 Presence of coronary angioplasty implant and graft; Z90.49 Acquired absence of other specified parts of digestive tract; Z98.890 Other specified postprocedural states; Z86.718 Personal history of other venous thrombosis and embolism; Z79.899 Other long term (current) drug therapy; Z79.82 Long term (current) use of aspirin; Y83.8 Other surgical procedures as the cause of abnormal reaction of the patient, or of later complication, without mention of misadventure at the time of the procedure; Y92.89 Other specified places as the place of occurrence of the external cause
CPT/HCPCS: 36415; 49325; 80053; 81001; 82948; 85025; 93005; J0690; J1642; J2250; J2270; J2405; J2704; J2710; J3010; J3490; J7030; J7040; Z7506; Z7508; Z7512; A4215; A4618; A6258; A6449; A7000; J7120